=== PATIENT | male | born 1990 | race Caucasian/White ===

== ENCOUNTER 2018-07-03 12:25 | Emergency (ER) | payer OTHER, SELFPAY ==
[2018-07-03 12:31] VITALS: BP 154/77; PULSE 64; RESP 16; TEMP 37; O2SAT 97
--- NOTE | 2018-07-03 12:42 | ED.GENADUL_ITS ---
Disposition Clinical Impression: Dermatitis of bilateral hands Disposition: HOME Condition: Good Additional Instructions: May apply bacitracin to fingers twice daily for the next 2-3 days time. Take prednisone as prescribed. Return to the emergency department for any acute concerns Please follow-up with your regular doctor at the ID clinic in [place] within the next 3-7 days time. Call upon your return home for an appointment. Prescriptions: Prednisone 50 mg PO DAILY #6 tablet Medical Decision Making - Medical Decision Making 20-year-old male with persistent itching dermatitis of his index and long fingers of both hands occurred while in senior living. He was treated with ivermectin both by mouth and topically. Do not feel that this represents persistent scabies or lice. Most consistent with acute dermatitis, may be due to chemicals of the book the patient had been reading. He is stable for discharge. Will trial p.o. burst of steroids. He will follow- up with his ID physician upon return to home this week. History of Present Illness - General Chief complaint: RashLesion Stated complaint: RASH Time Seen by Provider: 07/03/18 12:30 Source: patient, RN notes reviewed Mode of arrival: ambulatory Limitations: no limitations - History of Present Illness Initial comments: Bilateral finger rash: 20-year-old male, recently released from senior living this morning, states that he was treated for left armpit and bilateral finger rash with both p.o. and topical ivermectin in senior living. He now has mild itching rash to the bilateral index and long fingers at this location where he was holding a book for many weeks while reading in senior living. He has healing left armpit/axillary heat rash that he says is better. He has not had any pain, itching, discomfort in that region. - Related Data Cyclobenzaprine [Flexeril] 10 mg PO TID 07/03/18 Gabapentin 200 mg PO TID 07/03/18 Ibuprofen 800 mg PO TID 07/03/18 Prednisone 50 mg PO DAILY #6 tablet 07/03/18 Propranolol [Inderal] 20 mg PO BID 07/03/18 Allergies Allergy/AdvReac Type Severity Reaction Status Date / Time No Known Allergies Allergy Unverified 07/03/18 12:34 Review of Systems Other: 6 systems reviewed, otherwise negative Past Medical History - Past Medical History chronic back pain Surgical history: no surgical history - Social History Alcohol use: none Drug use: none General Exam - General Limitations: no limitations General appearance: alert, in no apparent distress - Head Head exam: Present: atraumatic, normocephalic - Eye Eye exam: Present: PERRL, EOMI - ENT ENT exam: Present: normal exam - Neck Neck exam: Present: normal inspection - Respiratory Respiratory exam: Present: normal lung sounds bilaterally. Absent: respiratory distress - Cardiovascular Cardiovascular Exam: Present: regular rate, normal rhythm - By manual exam: Present: other (Excoriated radial and ulnar aspects of index and long fingers bilaterally.) - Neurological Exam Neurological exam: Present: alert, oriented X3 - Psychiatric Psychiatric exam: Present: normal affect, normal mood - Skin Skin exam: Present: warm, dry Course Vital Signs - 24 hr 07/03/18 12:31 Temperature 37 C Pulse 64 Respiratory 16 Rate Blood Pressure 154/77 Pulse Oximetry 97
== END 2018-07-03 12:51 | disposition home or self-care (01) ==
PROVIDERS: Emergency Provider Emergency Medicine
DX: L30.9 Dermatitis, unspecified (principal)
CPT/HCPCS: 99283

== ENCOUNTER 2018-07-29 10:10 | Emergency (ER) | payer OTHER, SELFPAY ==
[2018-07-29] MEDS: Ketorolac 30 MG/ML VIAL (10:44)
== END 2018-07-29 10:50 | disposition home or self-care (01) ==
PROVIDERS: Emergency Provider Emergency Medicine
DX: M54.32 Sciatica, left side (principal)
CPT/HCPCS: 99284; J1885

== ENCOUNTER 2018-07-29 17:44 | Emergency (ER) | payer OTHER, SELFPAY ==
[2018-07-29 17:47] VITALS: BP 158/98; PULSE 56; RESP 22; TEMP 36.9; O2SAT 100
--- NOTE | 2018-07-29 17:58 | W.ED.GENAD ---
Discharge Plan Discharge Details Chief Complaint: Nk/Back Pain Clinical Impression: Sciatica of left side Reason For Visit: recheck Primary Care Provider: [facility] ED Provider: Leandro Hassan Disposition Patient Disposition: HOME Home Meds and New Rx's Prescriptions: Continue hydrocodone-acetaminophen 5-325 mg Tablet 1 tab PO PRN PRNRF: 0 cyclobenzaprine 10 MG tablet 10 mg PO TID RF: 0 ibuprofen 800 MG tablet 800 mg PO TID RF: 0 gabapentin 100 MG capsule 200 mg PO TID RF: 0 propranolol 20 MG tablet 20 mg PO BID RF: 0 prednisone 50 MG tablet 50 mg PO DAILY Qty: 6 RF: 0 Discharge Instructions Instructions: Lumbar Radiculopathy (ED) Additional Instructions: follow up with your primary care provider this week if you have inability to urinate or high fevers return to the emergency department Medical Decision Making MDM Narrative Medical decision making narrative: patient here with months of lower back pain, currently has no findings to suggest cauda equina, sea or other spinal cord pathology. Given his continued pain will image to eval for possible compresion fracture though would be atypical in his age group. Has no abdominal pain and no flank pain so doubt entities such as kidney stone or abdominal surgical pathology pt's CT shows djd and some disc herniations, no fractures. He is sleeping on my repeat exam and when awoken states pain is still present but still has stable exam neurologically. Will have him f/u with pcp and continue over the counter medications and flexeril I prescribed earlier today HPI - General Adult General Mode of arrival: ambulatory. Date/Time Provider Initiated Documentation: 07/29/18 17:46. Limitations to Documentation: no limitations. Information obtained by: patient. History of Present Illness 28 year old M presents to the emergency department with the chief complaint of lower back pain, described as severe and similar to prior episodes, with intensity rated at 10. Quality is described as stabbing, and is localized to the back (lower back). Patient extremity (left leg). Patient started experiencing this month(s) (2) and it has been constant. No relieving factors improve symptom(s), No exacerbating factors reported . Patient notes no other symptoms.. Patient did receive the following treatments prior to arrival, NSAID Related Data Home Medications Medication Instructions Recorded Confirmed cyclobenzaprine 10 mg PO TID 07/03/18 07/29/18 gabapentin 200 mg PO TID 07/03/18 07/29/18 ibuprofen 800 mg PO TID 07/03/18 07/29/18 propranolol 20 mg PO BID 07/03/18 07/29/18 hydrocodone-acetaminophen 1 tab PO PRN PRN 07/29/18 07/29/18 Previous Rx's Medication Instructions Recorded prednisone 50 mg PO DAILY #6 tablet 07/03/18 Allergies Allergy/AdvReac Type Severity Reaction Status Date / Time No Known Allergies Allergy Unverified 07/03/18 12:34 General Stated Complaint: Nk/Back Pain JIMMY: 4 Review of Systems Review of Systems All systems reviewed & are unremarkable except as noted in HPI and below Constitutional Denies chills, Denies fever(s) and Denies weakness Eyes Patient Denies loss of vision ENT Denies change in voice Cardiovascular Denies chest pain and Denies dyspnea Respiratory Denies cough and Denies dyspnea Gastrointestinal Denies abdominal pain, Denies nausea and Denies vomiting Genitourinary Denies dysuria Musculoskeletal Reports back pain and Denies joint swelling Integumentary/Breasts Denies rash Neurologic Denies loss of vision and Denies weakness Psychiatric Denies depression Endocrine Denies cold intolerance and Denies heat intolerance Allergic/Immunologic Reports urticaria PFSH Social History Smoking/Tobacco Use Status: Current-Occasional Exam Const General: no acute distress Orientation: alert HENMT Head: normal to inspection Ears: external ears normal General nose exam: external nose normal Mouth: moist mucous membranes Eyes General: appearance normal, both eyes and all related structures Neck Neck: normal visual inspection Resp Effort & Inspection: normal respiratory effort and able to speak in complete sentences Cardio Rate: regular rate Back/Spine/Pelvis Back: no CVA tenderness Thoracic/Lumbar Spine: other (pain throughout lumbar region, no stepoffs or other deformities, no saddle anesthesia, distal intact sensation, normal patella and achilles reflexes and normal gait, no urinary retention) Skin General skin exam: no rashes or lesions noted Neuro General: alert and oriented x3 Extrem General: normal to inspection Psych Mental Status: mental status grossly normal Course Vital Signs Temperature 36.9 C 07/29/18 17:47 Pulse 56 L 07/29/18 17:47 Respiratory Rate 22 07/29/18 17:47 Blood Pressure 158/98 H 07/29/18 17:47 Pulse Oximetry 100 07/29/18 17:47 Temperature 36.9 C 07/29/18 17:47 Pulse 56 L 07/29/18 17:47 Respiratory Rate 22 07/29/18 17:47 Blood Pressure 158/98 H 07/29/18 17:47 Pulse Oximetry 100 07/29/18 17:47
[2018-07-29] MEDS: Ketorolac 30 MG/ML VIAL IM (18:01)
--- NOTE | 2018-07-29 18:09 | ED.GENADUL_ITS ---
Discharge Plan Discharge Details Chief Complaint: Nk/Back Pain Clinical Impression: Sciatica of left side Reason For Visit: recheck [facility] Provider: Leandro Hassan Disposition Patient Disposition: HOME Home Meds and New Rx's Prescriptions: Continue hydrocodone-acetaminophen 5-325 mg Tablet 1 tab PO PRN PRNRF: 0 cyclobenzaprine 10 MG tablet 10 mg PO TID RF: 0 ibuprofen 800 MG tablet 800 mg PO TID RF: 0 gabapentin 100 MG capsule 200 mg PO TID RF: 0 propranolol 20 MG tablet 20 mg PO BID RF: 0 prednisone 50 MG tablet 50 mg PO DAILY Qty: 6 RF: 0 Discharge Instructions Instructions: Lumbar Radiculopathy (ED) Additional Instructions: follow up with your primary care provider this week if you have inability to urinate or high fevers return to the emergency department Medical Decision Making MDM Narrative Medical decision making narrative: patient here with months of lower back pain, currently has no findings to suggest cauda equina, sea or other spinal cord pathology. Given his continued pain will image to eval for possible compresion fracture though would be atypical in his age group. Has no abdominal pain and no flank pain so doubt entities such as kidney stone or abdominal surgical pathology pt's CT shows djd and some disc herniations, no fractures. He is sleeping on my repeat exam and when awoken states pain is still present but still has stable exam neurologically. Will have him f/u with pcp and continue over the counter medications and flexeril I prescribed earlier today HPI - General Adult General Mode of arrival: ambulatory . Date/Time Provider Initiated Documentation: 07/29/18 17:46 . Limitations to Documentation: no limitations . Information obtained by: patient . History of Present Illness 28 year old M presents to the emergency department with the chief complaint of lower back pain, described as severe and similar to prior episodes, with intensity rated at 10. Quality is described as stabbing, and is localized to the back (lower back). Patient extremity (left leg). Patient started experiencing this month(s) (2) and it has been constant. No relieving factors improve symptom(s), No exacerbating factors reported . Patient notes no other symptoms.. Patient did receive the following treatments prior to arrival, NSAID Related Data Home Medications Medication Instructions Recorded Confirmed cyclobenzaprine 10 mg PO TID 07/03/18 07/29/18 gabapentin 200 mg PO TID 07/03/18 07/29/18 ibuprofen 800 mg PO TID 07/03/18 07/29/18 propranolol 20 mg PO BID 07/03/18 07/29/18 hydrocodone-acetaminophen 1 tab PO PRN PRN 07/29/18 07/29/18 Previous Rx's Medication Instructions Recorded prednisone 50 mg PO DAILY #6 tablet 07/03/18 Allergies Allergy/AdvReac Type Severity Reaction Status Date / Time No Known Allergies Allergy Unverified 07/03/18 12:34 General Stated Complaint: Nk/Back Pain JIMMY: 4 Review of Systems Review of Systems All systems reviewed & are unremarkable except as noted in HPI and below Constitutional Denies chills, Denies fever(s) and Denies weakness Eyes Patient Denies loss of vision ENT Denies change in voice Cardiovascular Denies chest pain and Denies dyspnea Respiratory Denies cough and Denies dyspnea Gastrointestinal Denies abdominal pain, Denies nausea and Denies vomiting Genitourinary Denies dysuria Musculoskeletal Reports back pain and Denies joint swelling Integumentary/Breasts Denies rash Neurologic Denies loss of vision and Denies weakness Psychiatric Denies depression Endocrine Denies cold intolerance and Denies heat intolerance Allergic/Immunologic Reports urticaria PFSH Social History Smoking/Tobacco Use Status: Current-Occasional Exam Const General: no acute distress Orientation: alert HENMT Head: normal to inspection Ears: external ears normal General nose exam: external nose normal Mouth: moist mucous membranes Eyes General: appearance normal, both eyes and all related structures Neck Neck: normal visual inspection Resp Effort & Inspection: normal respiratory effort and able to speak in complete sentences Cardio Rate: regular rate Back/Spine/Pelvis Back: no CVA tenderness Thoracic/Lumbar Spine: other (pain throughout lumbar region, no stepoffs or other deformities, no saddle anesthesia, distal intact sensation, normal patella and achilles reflexes and normal gait, no urinary retention) Skin General skin exam: no rashes or lesions noted Neuro General: alert and oriented x3 Extrem General: normal to inspection Psych Mental Status: mental status grossly normal Course Vital Signs Temperature 36.9 C 07/29/18 17:47 Pulse 56 L 07/29/18 17:47 Respiratory Rate 22 07/29/18 17:47 Blood Pressure 158/98 H 07/29/18 17:47 Pulse Oximetry 100 07/29/18 17:47 Temperature 36.9 C 07/29/18 17:47 Pulse 56 L 07/29/18 17:47 Respiratory Rate 22 07/29/18 17:47 Blood Pressure 158/98 H 07/29/18 17:47 Pulse Oximetry 100 07/29/18 17:47
[2018-07-29] MEDS: Cyclobenzaprine 10 MG TAB PO (19:25)
--- NOTE | 2018-07-29 20:00 | DI.CT_ITS ---
SYMPTOMS/DIAGNOSIS: LOW BACK PAIN CT OF THE LUMBAR SPINE: The vertebral bodies are well maintained in height. There is mild narrowing of the L5-S1 disc. There are endplate osteophytes projecting posteriorly and broad -based disc bulging, which is eccentric toward the left. This appears to cause neural foraminal narrowing and impingement on the left L5 and S1 nerve roots. The L4-5 disc shows mild bulging. There is no spondylolysis or spondylolisthesis. IMPRESSION: Left-sided disc bulging at L5-S1 causes neural foraminal narrowing and nerve impingement.
== END 2018-07-29 19:36 | disposition home or self-care (01) ==
PROVIDERS: Emergency Provider Emergency Medicine
DX: M54.5 Low back pain (principal); G89.29 Other chronic pain; I10 Essential (primary) hypertension
CPT/HCPCS: 99283; 72131; J1885